=== PATIENT | female | born 1960 | race Hispanic/Latino ===

== ENCOUNTER → 2018-01-19 | Outpatient (CLI) | payer OTHER | LOC: MAMMO 08:43 | PROVIDERS: ATTEND Internal Medicine | DX: Z12.31 Encounter for screening mammogram for malignant neoplasm of breast (principal) | CPT/HCPCS: 77067 ==

== ENCOUNTER → 2018-07-05 | Day surgery (SDC) | payer OTHER ==
[~2018-07-05] MED LIST: FENTANYL CITRATE/PF 100MCG/2 ML INJ ONE; GABAPENTIN100 MG PO; HYDRALAZINE HCL 20 MG/ML VIAL ONE; LEVEMIR100 UNIT/1 SQ; LISINOPRIL10 MG PO; METFORMIN HCL500 MG PO; MIDAZOLAM HCL 2 MG/2 ML VIAL ONE; NOVOLOG100 UNIT/1 SQ; OR PHACO EYE KIT ONE
[2018-07-05] MEDS: PREOP PHACO EYE KIT ONE (11:51)
[2018-07-05 13:20] VITALS: BP 165/84
== END | disposition home or self-care (01) ==
LOC: OR 09:44
PROVIDERS: ATTEND Ophthalmology
DX: H25.12 Age-related nuclear cataract, left eye (principal); E11.3393 Type 2 diabetes mellitus with moderate nonproliferative diabetic retinopathy without macular edema, bilateral; I10 Essential (primary) hypertension; E11.40 Type 2 diabetes mellitus with diabetic neuropathy, unspecified; E78.5 Hyperlipidemia, unspecified; J41.0 Simple chronic bronchitis; I05.9 Rheumatic mitral valve disease, unspecified; I73.9 Peripheral vascular disease, unspecified; Z79.4 Long term (current) use of insulin; Z68.34 Body mass index [BMI] 34.0-34.9, adult
CPT/HCPCS: 36415; 82948; J0360; J2250; V2632

== ENCOUNTER → 2018-08-02 | Day surgery (SDC) | payer OTHER ==
[~2018-08-02] MED LIST changes: +DEXTROSE 5% 250ML 250 ML IV ONE; -HYDRALAZINE HCL 20 MG/ML VIAL ONE; +PREOP PHACO EYE KIT ONE
[2018-08-02 12:15] VITALS: BP 151/89
== END | disposition home or self-care (01) ==
LOC: OR 09:10
PROVIDERS: ATTEND Ophthalmology
DX: H25.11 Age-related nuclear cataract, right eye (principal); E11.9 Type 2 diabetes mellitus without complications; I10 Essential (primary) hypertension; E78.5 Hyperlipidemia, unspecified; I83.90 Asymptomatic varicose veins of unspecified lower extremity; Z79.4 Long term (current) use of insulin
CPT/HCPCS: 36415; 66984; 82948; J2250; J7070; V2632

== ENCOUNTER 2018-09-30 18:52 | Emergency (ER) | payer OTHER ==
[~2018-09-30] VITALS: Ht 157.5 cm; Wt 81.6 kg
[~2018-09-30 18:52] MED LIST changes: -DEXTROSE 5% 250ML 250 ML IV ONE; -FENTANYL CITRATE/PF 100MCG/2 ML INJ ONE; -MIDAZOLAM HCL 2 MG/2 ML VIAL ONE; -OR PHACO EYE KIT ONE; -PREOP PHACO EYE KIT ONE
[2018-09-30] MEDS ORDERED: ACETAMINOPHEN 325 MG TAB PO ONE (20:00)
[2018-09-30 20:16] LABS: STREPTOCOCCUS GRP A ANTIGEN NEGATIVE (NEGATIVE)
[2018-09-30 20:26] LABS: INFLUENZAE A&B ANTIGEN (RAPID) NEGATIVE (NEGATIVE)
--- NOTE | 2018-09-30 20:43 | Diagnostic Imaging Report ---
EXAMINATION: CHEST 2 VIEWS INDICATION: Cough, congestion COMPARISON: None FINDINGS: PA and lateral views TUBES and LINES: None. LUNGS: Lungs are well inflated. There is no evidence of pneumonia or pulmonary edema. PLEURA: No pleural effusion or pneumothorax. HEART AND MEDIASTINUM: The cardiomediastinal silhouette is unremarkable.. BONES AND SOFT TISSUES: No focal osseous lesions. Mild degenerative changes of the spine. Soft tissues are unremarkable. UPPER ABDOMEN: No free air under the diaphragm. IMPRESSION: No acute thoracic abnormality. Signed by: Dr. Curtis Yang MD on 09/30/2018 8:40 PM
== END 2018-10-01 01:30 | disposition left against medical advice (07) ==
LOC: ER 18:52
DX: R05 Cough (principal)
CPT/HCPCS: 71046; 83518; 87070; 87400

== ENCOUNTER → 2020-02-02 | Outpatient (CLI) | payer OTHER ==
--- NOTE | 2020-02-02 11:33 | Diagnostic Imaging Report ---
EXAMINATION: CHEST 2 VIEWS INDICATION: Allergic rhinitis COMPARISON: Chest are graft 09/30/2018 FINDINGS: LINES/TUBES:None LUNGS:The lungs are moderately inflated. No focal consolidation or pulmonary edema. Mild central pulmonary vascular congestion. Mild bronchial wall thickening. PLEURA:No pleural effusion or pneumothorax. MEDIASTINUM:The cardiomediastinal silhouette appears normal in size and shape. BONES/SOFT TISSUES:No acute osseous injury. ABDOMEN:No free air under the diaphragm. IMPRESSION: Mild bronchial wall thickening can be seen in the setting of bronchitis. Central pulmonary vascular congestion without kirby pulmonary edema. Signed by: Calderon Ness MD on 02/02/2020 11:30 AM
== END ==
LOC: RAD 10:45
PROVIDERS: ATTEND Internal Medicine
DX: J30.89 Other allergic rhinitis (principal)
CPT/HCPCS: 71046

== ENCOUNTER → 2021-05-16 | Outpatient (CLI) | payer MEDICARE | LOC: MAMMO 10:31 | PROVIDERS: ATTEND Internal Medicine | DX: Z12.31 Encounter for screening mammogram for malignant neoplasm of breast (principal) | CPT/HCPCS: 77067 ==

== ENCOUNTER → 2021-06-25 | Day surgery (SDC) | payer MEDICARE, OTHER ==
[~2021-06-25] MED LIST changes: +AMIKACIN SULFATE 250 MG/ML 2ML VIAL IV ONE; +AMIKACIN SULFATE 500 MG in SODIUM CHLORIDE 0.9% 100 ML IV ONE; +AMIKACIN SULFATE IV ONE; +AMPICILLIN SOD IV ONE; +ASPIRIN81 MG PO; +ATORVASTATIN CA10 MG PO; +BASAGLAR K100 UNIT/1 SC; +RENVELA0.8 GM PO; +SODIUM BICARBO650 MG PO; +SODIUM CHLORIDE 0.9% 500ML 500 ML ONE; +SODIUM CHLORIDE 0.9% IV ONE
[2021-06-25 11:45] LABS: BASOPHILS % 0.4 % (0.0-1.0); EOSINOPHILS % 0.5 % (0.0-6.0); HEMATOCRIT 32.2 % (34.2-44.1); HEMOGLOBIN 10.5 g/dL (12.0-16.0); LYMPHOCYTES # (AUTO) 1.7 (1.0-3.2); LYMPHOCYTES % 20.7 % (18.0-39.1); MEAN CORPUSCULAR HEMOGLOBIN 30.2 pg (28-32); MEAN CORPUSCULAR HGB CONC 32.6 g/dL (31-35); MEAN CORPUSCULAR VOLUME 92.5 fL (81-99); MONOCYTES % 12.7 % (4.4-11.3); NEUTROPHILS # (AUTO) 5.3 (2.1-6.9); NEUTROPHILS % 64.6 % (38.7-80.0); PLATELET COUNT 275 x10e3/uL (140-360); RED BLOOD COUNT 3.48 x10e6/uL (3.6-5.1); RED CELL DISTRIBUTION WIDTH 13.2 % (11.7-14.4)
[2021-06-25 12:07] LABS: INR 1.04; PROTHROMBIN TIME 13.8 seconds (11.9-14.5)
[2021-06-25 12:08] LABS: PARTIAL THROMBOPLASTIN TIME 35.1 seconds (23.8-35.5)
[2021-06-25 12:32] LABS: ANION GAP 24.3 mmol/L (8-16); CALCIUM 9.4 mg/dL (8.4-10.2); CREATININE, SERUM 8.1 mg/dL (0.57-1.11); POTASSIUM 4.3 mmol/L (3.5-5.1)
[2021-06-25 16:05] VITALS: BP 140/71
== END | disposition home or self-care (01) ==
LOC: OR 10:19
PROVIDERS: ATTEND Internal Medicine Gastroenterology
DX: K59.09 Other constipation (principal); K52.9 Noninfective gastroenteritis and colitis, unspecified; K63.3 Ulcer of intestine; K57.30 Diverticulosis of large intestine without perforation or abscess without bleeding; K64.8 Other hemorrhoids; E11.22 Type 2 diabetes mellitus with diabetic chronic kidney disease; I12.0 Hypertensive chronic kidney disease with stage 5 chronic kidney disease or end stage renal disease; N18.6 End stage renal disease; E78.5 Hyperlipidemia, unspecified; Z01.810 Encounter for preprocedural cardiovascular examination; Z01.812 Encounter for preprocedural laboratory examination; Z20.822 Contact with and (suspected) exposure to COVID-19; Z79.82 Long term (current) use of aspirin; Z79.4 Long term (current) use of insulin; Z99.2 Dependence on renal dialysis; Z68.35 Body mass index [BMI] 35.0-35.9, adult
CPT/HCPCS: 36415; 45380; 80048; 82948; 85025; 85610; 85730; 93005; J0278; J7040; J7050; U0002; 45378

== ENCOUNTER → 2021-07-09 | Day surgery (SDC) | payer MEDICARE, OTHER ==
[~2021-07-09] MED LIST changes: -AMIKACIN SULFATE 250 MG/ML 2ML VIAL IV ONE; -AMIKACIN SULFATE 500 MG in SODIUM CHLORIDE 0.9% 100 ML IV ONE; -AMIKACIN SULFATE IV ONE; -AMPICILLIN SOD IV ONE; +FLUCONAZOLE 100 MG TAB ONE; +FLUCONAZOLE 100 MG TAB PO ONE; +HYOSCYAMINE SULFATE 0.5 MG/ML INJ ONE; +SIMETHICONE 40 MG/0.6 ML BTL ONE; +SODIUM CHLORIDE 0.9% 50ML 100 ML ONE; -SODIUM CHLORIDE 0.9% IV ONE
[2021-07-09 11:27] LABS: BASOPHILS % 0.4 % (0.0-1.0); EOSINOPHILS # (AUTO) 0.1 (0.0-0.4); EOSINOPHILS % 0.7 % (0.0-6.0); HEMATOCRIT 31.9 % (34.2-44.1); HEMOGLOBIN 10.1 g/dL (12.0-16.0); LYMPHOCYTES # (AUTO) 1.8 (1.0-3.2); LYMPHOCYTES % 19.7 % (18.0-39.1); MEAN CORPUSCULAR HEMOGLOBIN 29.4 pg (28-32); MEAN CORPUSCULAR HGB CONC 31.7 g/dL (31-35); MONOCYTES % 10.4 % (4.4-11.3); NEUTROPHILS # (AUTO) 6.2 (2.1-6.9); NEUTROPHILS % 68.3 % (38.7-80.0); PLATELET COUNT 255 x10e3/uL (140-360); RED BLOOD COUNT 3.43 x10e6/uL (3.6-5.1)
[2021-07-09 11:38] LABS: INR 1.09; PROTHROMBIN TIME 14.3 seconds (11.9-14.5)
[2021-07-09 11:39] LABS: PARTIAL THROMBOPLASTIN TIME 31.2 seconds (23.8-35.5)
[2021-07-09 11:44] LABS: ANION GAP 23.3 mmol/L (8-16); CALCIUM 9.7 mg/dL (8.4-10.2); CREATININE, SERUM 8.16 mg/dL (0.57-1.11); POTASSIUM 4.3 mmol/L (3.5-5.1)
[2021-07-09 14:05] VITALS: BP 131/77
== END | disposition home or self-care (01) ==
LOC: OR 10:53
PROVIDERS: ATTEND Internal Medicine Gastroenterology
DX: K59.09 Other constipation (principal); D12.3 Benign neoplasm of transverse colon; K64.8 Other hemorrhoids; K21.9 Gastro-esophageal reflux disease without esophagitis; E11.22 Type 2 diabetes mellitus with diabetic chronic kidney disease; I12.0 Hypertensive chronic kidney disease with stage 5 chronic kidney disease or end stage renal disease; N18.6 End stage renal disease; Z01.812 Encounter for preprocedural laboratory examination; Z20.822 Contact with and (suspected) exposure to COVID-19; Z79.4 Long term (current) use of insulin; Z79.82 Long term (current) use of aspirin; Z99.2 Dependence on renal dialysis; Z68.35 Body mass index [BMI] 35.0-35.9, adult
CPT/HCPCS: 36415; 45380; 45385; 80048; 82948; 85025; 85610; 85730; J0690; J1980; J7040; U0002; 45378